=== PATIENT | female | born 1955 | race Caucasian/White ===

== ENCOUNTER 2020-02-05 16:12 | Inpatient (IN) ==
[2020-02-05 17:07] LABS: Basophils % 0.4 %; Eosinophils % 0.4 %; Hematocrit 37.4 % (35.3-44.9); Hemoglobin 12.8 g/dL (11.5-15.4); Immature Granulocytes % 0.4 % (0-4); Lymphocytes # 1.2 K/mcL (0.6-4.6); Lymphocytes % 22.9 %; Mean Corpuscular HGB Conc 34.2 g/dL (31.6-35.5); Mean Corpuscular Hemoglobin 36.4 pg (28.0-33.3); Mean Corpuscular Volume 106.3 fL (83.0-100.0); Mean Platelet Volume 12.3 fL (9.4-12.4); Monocytes # 0.4 K/mcL (0.0-1.3); Monocytes % 7.4 %; Neutrophils # 3.7 K/mcL (1.6-8.9); Platelet Count 106 K/mcL (140-400); Red Blood Count 3.52 M/mcL (3.82-4.97); Segmented Neutrophils % 68.5 %; White Blood Count 5.4 K/mcL (4.3-11.1)
[2020-02-05 17:31] LABS: Acetaminophen < 10 mcg/mL (10-20); Alanine Aminotransferase 19 Units/L (7-52); Albumin 4.3 g/dL (3.5-5.7); Albumin/Globulin Ratio 1.4 (1.1-2.2); Alkaline Phosphatase 85 Units/L (34-104); Aspartate Amino Transferase 36 Units/L (13-39); BUN/Creatinine Ratio 12 (6-26); Bilirubin,Direct 0.2 mg/dL (0.0-0.2); Bilirubin,Indirect 0.4 mg/dL (0.0-1.0); Bilirubin,Total 0.6 mg/dL (0.3-1.0); Blood Urea Nitrogen 9 mg/dL (8-23); Calcium 9.5 mg/dL (8.6-10.3); Carbon Dioxide 25 mEq/L (23-29); Chloride 105 mEq/L (98-107); Ethanol < 10 mg/dL (Less than 10); Globulin 3.1 g/dL (2.4-3.5); Glucose 129 mg/dL (70-105); Osmolality,Calculated 286 (280-300); Potassium 3.5 mEq/L (3.5-5.1); Salicylate < 2.5 mg/dL (15.0-30.0); Sodium 138 mEq/L (136-145); Total Protein 7.4 g/dL (6.4-8.9); eGFR For African Americans > 60 (> 60); eGFR For Non-African Americans > 60 (> 60)
[2020-02-05 17:43] LABS: Thyroid Stimulating Hormone 3.097 mcIU/mL (0.340-5.600)
[2020-02-05 18:42] LABS: Bilirubin,Urine Negative (Negative); Blood,Urine Negative (Negative); Clarity,Urine Cloudy (Clear); Color,Urine Yellow (Yellow); Glucose,Urine (UA) Normal (Normal); Ketones,Urine Negative (Negative); Leukocyte Esterase,Urine Small (Negative); Nitrite,Urine Negative (Negative); Protein,Urine Negative (Neg-Trace); Specific Gravity,Urine 1.023 (1.010-1.025); Urobilinogen,Urine Normal (Normal)
[2020-02-05 18:49] LABS: Amphetamine Screen,Urine Negative ng/mL (Cutoff=1000); Barbiturate Screen,Urine Negative ng/mL (Cutoff=200); Benzodiazepines Screen,Urine Negative ng/mL (Cutoff=200); Cannabinoid Screen,Urine Negative ng/mL (Cutoff = 50); Cocaine Screen,Urine Negative ng/mL (Cutoff= 300); Opiate Screen,Urine Negative ng/mL (Cutoff=300); Phencyclidine Screen,Urine Negative ng/mL (Cutoff=25)
[2020-02-05 18:51] LABS: Bacteria,Urine None Seen per hpf (None-Few); Hyaline Casts,Urine None Seen per lpf (None-Few); RBC,Urine 0-3 per hpf (0-3); Squamous Epithelial Cell,Urine Many per lpf (None-Few)
[2020-02-05] MEDS ORDERED: Ziprasidone 20 MG/VIAL VIAL IM ONE (20:26)
[2020-02-05] MEDS ORDERED: Water for inj. (sterile) 20 ML IV ONE (20:27)
[2020-02-05] MEDS ORDERED: Ziprasidone 10 MG in Water for inj. (sterile) 0.5 ML IM ONE (20:58)
[2020-02-05] MEDS ORDERED: *HR* LORazepam 2 MG/ML VIAL IM PRN (21:33)
[2020-02-05] MEDS ORDERED: Mag Hydrox/Al Hydrox/Simeth 30 ML UDC PO PRN (21:33)
[2020-02-05] MEDS ORDERED: Acetaminophen 325 MG TABLET PO PRN (21:33)
[2020-02-05] MEDS ORDERED: Haloperidol Lactate 5 MG/ML VIAL IM PRN (21:33)
[2020-02-05] MEDS ORDERED: Ibuprofen 400 MG TABLET PO PRN (21:33)
[2020-02-05] MEDS ORDERED: QUEtiapine Fumarate 25 MG TABLET PO PRN (21:33)
[2020-02-06] MEDS: OLANZapine 5 MG TAB.RAPDIS PO SCH (17:18)
[2020-02-06] MEDS: haloperidoL 5 MG TABLET PO PRN (20:59)
[2020-02-06] MEDS: *HR* LORazepam 1 MG TABLET PO PRN (20:59)
[2020-02-07] MEDS ORDERED: *HR* LORazepam 1 MG TABLET PO ONE (04:11)
[2020-02-07] MEDS: haloperidoL 5 MG TABLET PO PRN (11:17)
[2020-02-07] MEDS: *HR* LORazepam 1 MG TABLET PO PRN (11:17)
[2020-02-07] MEDS: OLANZapine 5 MG TAB.RAPDIS PO SCH (17:26)
[2020-02-08] MEDS: OLANZapine 5 MG TAB.RAPDIS PO SCH ×2 (20:32→21:21)
[2020-02-09] MEDS ORDERED: OLANZapine 10 MG TAB.RAPDIS PO SCH (21:00)
[2020-02-10 09:56] VITALS: BP 112/70
== END 2020-02-10 14:15 | disposition home or self-care (01) | DRG 753 ==
LOC: 1ANU 16:12 → EMEROOARM 16:12 → 1ANU 22:45
PROVIDERS: ADMIT Psychiatry & Neurology Psychiatry; ATTEND Psychiatry & Neurology Psychiatry